=== PATIENT | male | born 1970 | race Hispanic/Latino ===

== ENCOUNTER 2020-04-09 06:31 | Day surgery (SDC) | payer BC ==
[~2020-04-09 06:31] MED LIST: BLOOD PRESSURE; CHOLESTEROL; DIABETES; FLEXERIL PO; FLUARIX QUADRIV1 INJ IM; GLYBURID MCR1.5 MG PO; LISINOPRIL5 MG PO; LOPID600 MG PO; METFORMIN500 M2 PO; ULTRAM50 M1 PO
[2020-04-09 09:06] VITALS: BP 139/91
--- NOTE | 2020-04-19 16:16 | NUR ---
PER PHYSICIAN, PATIENT NOTIFIED OF RESULTS. ADVISED HIGH FIBER DIET, OTC HEMORRHOIDAL TREATMENT, AND REPEAT COLONOSCOPY X 10 YEARS OR SOONER IF NEEDED. PATIENT AGREED TO INFORMATION GIVEN AND NO FURTHER CONCERNS VOICED AT TIME OF CALL.
== END 2020-04-09 09:10 | disposition home or self-care (01) | DRG 951 ==
LOC: ENDO 06:31
PROVIDERS: ATTEND Surgery
PROC: 0DJD8ZZ Inspection of Lower Intestinal Tract, Via Natural or Artificial Opening Endoscopic (ICD-10-PCS; principal; 2020-04-09)
DX: Z12.11 Encounter for screening for malignant neoplasm of colon (principal); K57.30 Diverticulosis of large intestine without perforation or abscess without bleeding; K64.8 Other hemorrhoids; E11.9 Type 2 diabetes mellitus without complications; I10 Essential (primary) hypertension; Z11.59 Encounter for screening for other viral diseases